=== PATIENT | male | born 1940 | race Caucasian/White ===

== ENCOUNTER 2019-12-02 13:25 | Outpatient (CLI) | payer MEDICARE ==
[2019-12-02] MEDS ORDERED: Vitamin B1 PO (13:58)
[2019-12-02] MEDS ORDERED: AMIT25TA PO (13:58)
[2019-12-02] MEDS ORDERED: SERT100T32 PO (13:58)
[2019-12-02] MEDS ORDERED: AMAN100T PO (13:58)
[2019-12-02] MEDS ORDERED: FINA5TAB4 PO (13:58)
[2019-12-02 14:35] LABS: BASOPHILS # (AUTO) 0.04 x10^3/uL (0-0.1); BASOPHILS % (AUTO) 1 % (0-1); EOSINOPHILS # (AUTO) 0.34 x10^3/uL (0-0.4); EOSINOPHILS % (AUTO) 6 % (1-7); LYMPHOCYTES % (AUTO) 21 % (22-44); MD NO; MEAN CORPUSCULAR HEMOGLOBIN 30.8 pg (27.5-34.5); MEAN CORPUSCULAR HGB CONC 33.2 g/dL (33.2-36.2); MEAN CORPUSCULAR VOLUME 92.7 fL (81-97); MEAN PLATELET VOLUME 7.6 fL (7.4-10.4); MONOCYTES # (AUTO) 0.56 x10^3/uL (0.2-0.8); MONOCYTES % (AUTO) 9 % (2-9); NEUTROPHILS # (AUTO) 4.01 x10^3/uL (1.8-6.8); NEUTROPHILS % (AUTO) 64 % (42-75); PLATELET COUNT 242 x10^3/uL (130-400); RED BLOOD COUNT 4.29 x10^6/uL (4.38-5.82); RED CELL DISTRIBUTION WIDTH 15.3 % (9.4-14.8)
[2019-12-02 14:43] LABS: INTERNATIONAL NORMALIZED RATIO 0.98 (0.93-1.1); PROTHROMBIN TIME 10.4 Seconds (9.6-11.5)
[2019-12-02 14:47] LABS: ANION GAP 7 mmol/L (5-15); CALCIUM 8.9 mg/dL (8.5-10.1); CHLORIDE 109 mmol/L (98-107)
[2019-12-02 14:48] LABS: CREATININE 2.33 mg/dL (0.7-1.3)
[2019-12-07] MEDS ORDERED: FENTANYL PF 250 MCG/5ML ONE (07:17)
[2019-12-07] MEDS ORDERED: PHENYLEPHRINE 10 MG/ML ONE (07:18)
[2019-12-07] MEDS ORDERED: ROPIvacaine/PF 0.2%, 20 ML ONE (07:38)
[2019-12-07] MEDS ORDERED: ROCURONIUM 10MG/ML,5ML ONE (07:39)
[2019-12-07] MEDS ORDERED: GLYCOPYRROLATE 0.2MG/1ML, 5ML ONE (07:39)
[2019-12-07] MEDS ORDERED: PROPOFOL 10 MG/ML, 20ML ONE (07:39)
[2019-12-07] MEDS ORDERED: NEOSTIGMINE 1 MG/ML, 10ML ONE (07:39)
[2019-12-07] MEDS ORDERED: CEFAZOLIN 1,000 MG ONE (07:39)
== END 2019-12-02 23:59 | disposition home or self-care (01) ==
LOC: STAR 13:25
PROVIDERS: ATTEND Orthopaedic Surgery
DX: Z01.818 Encounter for other preprocedural examination (principal); M17.11 Unilateral primary osteoarthritis, right knee
CPT/HCPCS: 36415; 80048; 83036; 85025; 85610; 85730; 87081; 93005

== ENCOUNTER 2019-12-07 07:37 | Observation (INO) | payer MEDICARE, OTHER ==
[~2019-12-07] VITALS: Ht 177.8 cm; Wt 67.0 kg
[~2019-12-07 07:37] MED LIST: AMAN100T PO; AMIT25TA PO; FINA5TAB4 PO; KETOROLAC 60 MG/2 ML ONE; ROPIvacaine/PF 0.5%, 20 ML ONE; ROPIvacaine/PF 0.5%, 30 ML ONE; SERT100T32 PO; SODIUM CHLORIDE 0.9% 50 ML ONE; TRANEXAMIC ACID 100 MG/ML, 10ML ONE; VANCOMYCIN 1,000 MG ONE; Vitamin B1 PO
[2019-12-07] MEDS ORDERED: LACTATED RINGERS 1,000 ML IV SCH (07:57)
[2019-12-07] MEDS ORDERED: GABAPENTIN 300 MG CAPSULE PO ONE (08:00)
[2019-12-07] MEDS ORDERED: ACETAMINOPHEN 500 MG TABLET PO ONE (08:00)
[2019-12-07 08:02] VITALS: BP 134/81
[2019-12-07] MEDS ORDERED: FENTANYL PF 100 MCG/2ML IV PRN (08:30)
[2019-12-07] MEDS ORDERED: HYDROmorphone 2 MG/ML, 1ML IVPush PRN (08:30)
[2019-12-07] MEDS ORDERED: MEPERIDINE/PF 25MG/ML,1ML IVPush PRN (08:30)
[2019-12-07] MEDS ORDERED: OXYcodone 5 MG/5 ML ORAL.SOL UDC PO PRN (08:30)
[2019-12-07] MEDS ORDERED: hydrALAzine 20 MG/ML, 1ML IV PRN (08:30)
[2019-12-07] MEDS ORDERED: LABETALOL 5MG/ML, 20ML IV PRN (08:30)
[2019-12-07] MEDS ORDERED: MORPHINE SULFATE 4 MG/ML, 1ML IVPush PRN (08:30)
[2019-12-07] MEDS ORDERED: ONDANSETRON 2MG/ML, 2ML IV PRN ×2 (08:30→11:00)
[2019-12-07] MEDS ORDERED: PHENYLEPHRINE 10 MG/ML ONE (08:31)
[2019-12-07] MEDS ORDERED: CEFAZOLIN 1,000 MG ONE (08:31)
[2019-12-07] MEDS ORDERED: PROPOFOL 10 MG/ML, 20ML ONE (08:31)
[2019-12-07] MEDS ORDERED: GLYCOPYRROLATE 0.2MG/1ML, 5ML ONE (08:31)
[2019-12-07] MEDS ORDERED: NEOSTIGMINE 1 MG/ML, 10ML ONE (08:31)
[2019-12-07] MEDS ORDERED: ROCURONIUM 10 MG/ML,10ML ONE (08:31)
[2019-12-07 10:40] VITALS: BP 129/80
[2019-12-07] MEDS ORDERED: SERTRALINE 100MG TABLET PO SCH (11:00)
[2019-12-07] MEDS ORDERED: AMANTADINE 100 MG CAPSULE PO SCH (11:00)
[2019-12-07] MEDS ORDERED: ONDANSETRON ODT 4 MG PO PRN (11:00)
[2019-12-07] MEDS ORDERED: HYDROmorphone 1 MG/ML, 1ML INJ IV PRN (11:00)
[2019-12-07] MEDS ORDERED: DIPHENHYDRAMINE 25 MG CAPSULE PO PRN (11:00)
[2019-12-07] MEDS ORDERED: BISACODYL 10 MG SUPP PR PRN (11:00)
[2019-12-07] MEDS ORDERED: SENNA/DOCUSATE TABLET PO PRN (11:00)
[2019-12-07] MEDS ORDERED: MAGNESIUM HYDROXIDE 8%, 30ML UDC PO PRN (11:00)
[2019-12-07] MEDS: OXYcodone IR 5MG TABLET PO PRN ×3 (12:27→22:42)
[2019-12-07 12:58] VITALS: BP 144/66
[2019-12-07 14:00] VITALS: BP 87/55
[2019-12-07] MEDS ORDERED: HYDROcodone/APAP 5/325 TABLET PO PRN (14:15)
[2019-12-07] MEDS: NS + 20MEQ KCL 1,000 ML IV SCH ×2 (14:38→23:30)
[2019-12-07] MEDS: ASPIRIN 81 MG TABLET EC PO SCH (17:25)
[2019-12-07] MEDS: DOCUSATE 100 MG CAPSULE PO SCH ×2 (17:25→21:00)
[2019-12-07] MEDS: CEFAZOLIN PMX 2GM/50ML 50 ML IVPB SCH (17:25)
[2019-12-07] MEDS ORDERED: AMITRIPTYLINE 50 MG TABLET PO SCH (21:00)
[2019-12-07] MEDS ORDERED: ZOLPIDEM 5MG TABLET PO PRN (21:00)
[2019-12-07 21:10] VITALS: BP 155/72
[2019-12-07] MEDS: FINASTERIDE 5 MG TABLET PO SCH (21:22)
[2019-12-07 23:40] VITALS: BP 154/80
[2019-12-08] MEDS: CEFAZOLIN PMX 2GM/50ML 50 ML IVPB SCH (01:11)
[2019-12-08] MEDS: ACETAMINOPHEN 325 MG TABLET PO PRN ×2 (01:18→10:55)
[2019-12-08] MEDS: OXYcodone IR 5MG TABLET PO PRN ×3 (03:34→10:55)
[2019-12-08 04:00] VITALS: BP 105/67
[2019-12-08] MEDS ORDERED: DEXAMETHASONE 4 MG/ML, 1ML IVPush SCH (06:00)
[2019-12-08] MEDS: ASPIRIN 81 MG TABLET EC PO SCH (06:12)
[2019-12-08] MEDS: FINASTERIDE 5 MG TABLET PO SCH (06:33)
[2019-12-08 08:14] VITALS: BP 151/68
[2019-12-08] MEDS ORDERED: OXYC5TAB3 PO (09:42)
[2019-12-08] MEDS ORDERED: TRAM50TA2 PO (09:43)
[2019-12-08] MEDS ORDERED: MELO7.5T31 PO (09:44)
[2019-12-08] MEDS: DOCUSATE 100 MG CAPSULE PO SCH (10:55)
[2019-12-08] MEDS: NS + 20MEQ KCL 1,000 ML IV SCH (12:00)
[2019-12-08 12:36] VITALS: BP 135/77
[2019-12-08 14:50] VITALS: BP 125/63
== END 2019-12-08 15:41 | disposition home or self-care (01) ==
LOC: OUT 07:37 → 4NE 10:40 → OUT 22:55 → DCLOUNGE 12-08 15:27
PROVIDERS: ADMIT Orthopaedic Surgery; ATTEND Orthopaedic Surgery
DX: M17.11 Unilateral primary osteoarthritis, right knee (principal); N40.0 Benign prostatic hyperplasia without lower urinary tract symptoms; R33.9 Retention of urine, unspecified; N18.9 Chronic kidney disease, unspecified; Z79.899 Other long term (current) drug therapy
CPT/HCPCS: 27447; 36415; 85014; 85018; 96365; 96366; 96375; 97110; 97116; 97161; 97166; 97530; C1713; C1776; G0378; J0690; J1100; J2370; J2704; J2710; J2795; J3010; J3370; J3480; J7120; J1885